=== PATIENT | female | born 1995 | race Caucasian/White ===

== ENCOUNTER 2018-04-06 18:02 | Emergency (ER) | payer OTHER, BC ==
--- NOTE | 2018-04-06 21:46 | EDM.PDOC ---
ED HPI GENERAL MEDICAL PROBLEM - General Chief Complaint: Lower Extremity Injury/Pain Stated Complaint: POSIBLE LEG FRACTURE [id number] Time Seen by Provider: 04/06/18 21:00 Source of Information: Reports: Patient History Limitations: Reports: No Limitations - History of Present Illness INITIAL COMMENTS - FREE TEXT/NARRATIVE: tripped in drain hole at work, twisted left ankle swelling, non weight bearing Left Ankle Pain Score (Numeric/FACES): 5 - Related Data Allergies Allergy/AdvReac Type Severity Reaction Status Date / Time No Known Allergies Allergy Verified 04/06/18 19:28 Home Meds: Home Meds SUMAtriptan [Imitrex] 50 mg PO ASDIRECTED 04/06/18 [History] Past Medical History Neurological History: Reports: Migraines - Past Surgical History HEENT Surgical History: Reports: Adenoidectomy, Tonsillectomy Social & Family History - Tobacco Use Smoking Status *Q: Never Smoker Second Hand Smoke Exposure: No - Recreational Drug Use Recreational Drug Use: No Review of Systems - Review of Systems Review Of Systems: ROS reveals no pertinent complaints other than HPI. ED EXAM, GENERAL - Physical Exam Exam: See Below Exam Limited By: No Limitations General Appearance: Alert, Mild Distress (with movement) Eye Exam: Bilateral Eye: EOMI Ears: Normal External Exam, Hearing Grossly Normal Nose: Normal Inspection Throat/Mouth: Normal Lips, Normal Voice Head: Atraumatic, Normocephalic Respiratory/Chest: No Respiratory Distress Cardiovascular: Normal Peripheral Pulses, Regular Rate, Rhythm Back Exam: Full Range of Motion Extremities: Limited Range of Motion (left ankle moderate swelling lateral ankle , increase pain inversion , flexion) Neurological: Alert, Oriented, Normal Cognition Psychiatric: Normal Affect Skin Exam: Warm, Dry, Intact, Ecchymosis (light) Course - Vital Signs Last Recorded V/S: Last Vital Signs Temp 98.4 F 04/06/18 21:22 Pulse 67 04/06/18 21:22 Resp 15 04/06/18 21:22 BP 113/69 04/06/18 21:22 Pulse Ox 100 04/06/18 21:22 Departure - Departure Time of Disposition: 21:43 Disposition: Home, Self-Care 01 Condition: Good Clinical Impression: Ankle sprain Qualifiers: Encounter type: initial encounter Involved ligament of ankle: unspecified ligament Laterality: left Qualified Code(s): S93.402A - Sprain of unspecified ligament of left ankle, initial encounter - Discharge Information *PRESCRIPTION DRUG MONITORING PROGRAM REVIEWED*: No *COPY OF PRESCRIPTION DRUG MONITORING REPORT IN PATIENT HYACINTH: No Instructions: Ankle Sprain, [id number] Forms: ED Department Discharge Additional Instructions: Ice, Elevate, Cam Boot, crutches Non weight bearing x 2 days then gradual weight bearing as tolerated Alternate tylenol 650mg and ibuprofen 600mg every 4 hours as needed for discomfort clinic follow up if not improving in 1-2 weeks
== END 2018-04-06 21:57 | disposition home or self-care (01) ==
LOC: DL.ED 18:02
DX: S93.402A Sprain of unspecified ligament of left ankle, initial encounter (principal); W18.40XA Slipping, tripping and stumbling without falling, unspecified, initial encounter
CPT/HCPCS: 73610-LT; 99283